=== PATIENT | male | born 1985 | race Caucasian/White ===

== ENCOUNTER 2016-12-13 13:00 | Emergency (ER) | payer OTHER ==
[~2016-12-13] VITALS: Ht 170.2 cm; Wt 72.4 kg
[~2016-12-13 13:00] MED LIST: MOTRIN IB200 MG PO
[2016-12-13 13:06] VITALS: BP 120/90
== END 2016-12-13 14:40 | disposition left against medical advice (07) ==
LOC: EME 13:00
DX: F11.10 Opioid abuse, uncomplicated (principal); Z53.21 Procedure and treatment not carried out due to patient leaving prior to being seen by health care provider